=== PATIENT | male | born 2000 | race Caucasian/White ===

== ENCOUNTER 2019-12-21 19:53 | Emergency (ER) | payer OTHER ==
[~2019-12-21] VITALS: Ht 170.2 cm; Wt 57.2 kg
== END 2019-12-21 21:19 | disposition home or self-care (01) ==
LOC: ER 19:53 → EMR PED 19:53 → ER 21:10
DX: H66.91 Otitis media, unspecified, right ear (principal)

== ENCOUNTER 2023-01-05 07:25 | Emergency (ER) | payer OTHER ==
[~2023-01-05] VITALS: Ht 170.2 cm; Wt 62.6 kg
== END 2023-01-05 10:01 | disposition home or self-care (01) ==
LOC: ER 07:25
DX: M94.0 Chondrocostal junction syndrome [Tietze] (principal)
CPT/HCPCS: 71046; 96372; 99284; J1885; J2360